=== PATIENT | female | born 1985 | race Caucasian/White ===

== ENCOUNTER 2017-11-27 20:45 | Emergency (ER) | payer OTHER, BC ==
[~2017-11-27] VITALS: Ht 162.6 cm; Wt 93.2 kg
[~2017-11-27 20:45] MED LIST: EPIDUO 0.1%-2.51 GEL TP; LEVEMIR100 U/ML SC; NORCO 325 MG-51 TAB PO; NOVOLOG FLEX100 U/ML SC; PERCOCET 325 MG1 TA2 PO; PHENERGAN 25 TA25 MG PO; PRENATAL1 TA1 PO; RANITIDINE150 MG PO
[2017-11-27 21:01] VITALS: BP 140/76; TEMP 99.3
[2017-11-27] MEDS ORDERED: FLEXERIL 1010 MG/TAB PO (23:04)
[2017-11-27 23:21] VITALS: PULSE 78
== END 2017-11-27 23:33 | disposition home or self-care (01) ==
LOC: COL.ER 20:45
DX: M54.2 Cervicalgia (principal); R51 Headache; Z90.49 Acquired absence of other specified parts of digestive tract; V43.52XA Car driver injured in collision with other type car in traffic accident, initial encounter